=== PATIENT | female | born 2000 | race Two or more races ===

== ENCOUNTER 2023-08-12 11:41 | Emergency (ER) | payer BC, MEDICAID ==
[~2023-08-12] VITALS: Ht 160 cm; Wt 74.8 kg
[2023-08-12] MEDS ORDERED: ALBU18HF2 INH (13:08)
[2023-08-12 13:31] VITALS: BP 140/83; TEMP 98.3; O2SAT 98
== END 2023-08-12 13:31 | disposition home or self-care (01) ==
LOC: ER 11:51
DX: R05.9 Cough, unspecified (principal)
CPT/HCPCS: 71045-TC

== ENCOUNTER 2023-08-24 20:28 | Emergency (ER) | payer BC ==
[~2023-08-24] VITALS: Ht 160 cm; Wt 72.6 kg
[~2023-08-24 20:28] MED LIST: ALBU18HF2 INH
[2023-08-24] MEDS ORDERED: GUAI-671 PO (22:01)
[2023-08-24 22:10] VITALS: BP 104/79; TEMP 98.2; O2SAT 99
== END 2023-08-24 22:10 | disposition home or self-care (01) ==
LOC: ER 20:29
DX: R09.1 Pleurisy (principal)
CPT/HCPCS: 71045-TC

== ENCOUNTER 2025-02-20 09:37 | Emergency (ER) | payer BC ==
[~2025-02-20] VITALS: Ht 160 cm; Wt 81.6 kg
[~2025-02-20 09:37] MED LIST changes: +GUAI-671 PO
[2025-02-20] MEDS: PSEUDOEPHEDRINE HCL 30 MG TABLET PO ONE (10:30)
[2025-02-20] MEDS ORDERED: PSEUDOEPHEDRINE HCL 30 MG TABLET ONE (10:44)
[2025-02-20] MEDS ORDERED: BENZONATATE 100 MG CAPSULE PO ONE (10:44)
[2025-02-20] MEDS ORDERED: BENZ-13 PO (10:48)
[2025-02-20] MEDS ORDERED: ALBU18HF2 INH (10:48)
[2025-02-20] MEDS: BENZONATATE 100 MG CAPSULE PO PRN (10:51)
[2025-02-20 11:02] VITALS: BP 119/84; TEMP 98.6; O2SAT 99
== END 2025-02-20 11:03 | disposition home or self-care (01) ==
LOC: ER 09:55
DX: R05.9 Cough, unspecified (principal); J34.89 Other specified disorders of nose and nasal sinuses; R09.81 Nasal congestion
CPT/HCPCS: 71045-TC

== ENCOUNTER 2025-02-27 19:49 | Emergency (ER) | payer BC ==
[~2025-02-27] VITALS: Ht 160 cm; Wt 78.9 kg
[~2025-02-27 19:49] MED LIST changes: +BENZ-13 PO
[2025-02-27 20:40] LABS: BILIRUBIN,URINE MODERATE (NEGATIVE); BLOOD, URINE Large Ery/uL (NEGATIVE); KETONES,URINE 15 mg/dL (NEGATIVE); LEUKOCYTE ESTERASE ,URINE Large (NEGATIVE); PH,URINE 5.5 (5.0-8.0); PROTEIN,URINE >=300 mg/dl (NEGATIVE); UGLUCOSE Negative (NEGATIVE)
[2025-02-27 20:41] LABS: APPEARANCE,URINE HAZY (CLEAR); COLOR,URINE RED (YELLOW); NITRITE, URINE NEGATIVE (NEGATIVE)
[2025-02-27 20:42] LABS: ADD URINE CULTURE YES; BACTERIA,URINE 1+ /HPF (None Seen); RBC,URINE 51-80 /HPF (0-2); WBC,URINE 21-50 /HPF (0-3)
[2025-02-27 20:43] LABS: SQUAMOUS EPITHELIAL CELL,UR Moderate /HPF (None Seen); URINE AMORPHOUS URATE Moderate /HPF (None Seen)
[2025-02-27 21:16] LABS: BASOPHILS % (AUTO) 0.7 % (0.0-2.0); EOSINOPHILS # (AUTO) 0.1 K/uL (0.0-0.7); EOSINOPHILS % (AUTO) 1.7 % (0.0-6.0); HEMATOCRIT 40 % (33-45); HEMOGLOBIN 13.7 g/dL (11.5-14.8); LYMPHOCYTES % (AUTO) 29.7 % (20.0-44.0); MEAN CORPUSCULAR HEMOGLOBIN 30 PG (26.0-33.0); MEAN CORPUSCULAR HGB CONC 34 g/dl (31.0-36.0); MEAN CORPUSCULAR VOLUME 86 fL (82-100); MONOCYTES # (AUTO) 0.6 K/uL (0.1-1.30); MONOCYTES % (AUTO) 9.5 % (2.0-12.0); NEUTROPHILS # (AUTO) 3.9 K/uL (1.8-8.9); NEUTROPHILS % (AUTO) 58.4 % (43.0-81.0); PLATELET COUNT (AUTO) 257 K/uL (150-450); RED BLOOD CELL COUNT(AUTO) 4.65 MIL/uL (4.0-5.2); RED CELL DISTRIBUTION WIDTH 13.2 % (11.5-15.0); WHITE BLOOD COUNT (AUTO) 6.8 K/uL (4.3-11.0)
[2025-02-27] MEDS ORDERED: ACETAMINOPHEN ES 500 MG TABLET ONE (21:17)
[2025-02-27] MEDS: ACETAMINOPHEN ES 500 MG TABLET PO ONE (21:24)
[2025-02-27 21:29] LABS: CALCIUM, SERUM 8.9 mg/dL (8.5-10.1); CREATININE 0.6 mg/dL (0.6-1.3); POTASSIUM 3.7 mmol/L (3.5-5.1)
[2025-02-27 21:43] LABS: ALBUMIN 3.6 g/dL (3.4-5.0); BILIRUBIN,DIRECT 0.2 mg/dL (0.0-0.2); BILIRUBIN,TOTAL 0.7 mg/dL (0.2-1.0); TOTAL PROTEIN, SERUM 7.6 g/dL (6.4-8.2)
[2025-02-27] MEDS ORDERED: CEPH500C2 PO (22:03)
[2025-02-27 22:25] VITALS: BP 126/78; TEMP 98.9; O2SAT 99
== END 2025-02-27 22:29 | disposition home or self-care (01) ==
LOC: ER 19:54
DX: O20.8 Other hemorrhage in early pregnancy (principal); N39.0 Urinary tract infection, site not specified; R10.2 Pelvic and perineal pain; Z79.899 Other long term (current) drug therapy; Z3A.00 Weeks of gestation of pregnancy not specified
CPT/HCPCS: 36415; 76805-TC; 80048-TC; 80076-TC; 81001; 84702-TC; 85025-TC; 87086-TC

== ENCOUNTER 2025-03-02 13:49 | Emergency (ER) | payer BC ==
[~2025-03-02] VITALS: Ht 160 cm; Wt 77.6 kg
[~2025-03-02 13:49] MED LIST changes: +CEPH500C2 PO
[2025-03-02 14:03] VITALS: BP 113/59; TEMP 98.9; O2SAT 97
[2025-03-02 14:53] LABS: BASOPHILS % (AUTO) 0.6 % (0.0-2.0); EOSINOPHILS # (AUTO) 0.1 K/uL (0.0-0.7); EOSINOPHILS % (AUTO) 1.3 % (0.0-6.0); HEMATOCRIT 39 % (33-45); HEMOGLOBIN 13.1 g/dL (11.5-14.8); LYMPHOCYTES # (AUTO) 2.1 K/uL (0.8-4.8); LYMPHOCYTES % (AUTO) 26.2 % (20.0-44.0); MEAN CORPUSCULAR HEMOGLOBIN 30 PG (26.0-33.0); MEAN CORPUSCULAR HGB CONC 34 g/dl (31.0-36.0); MEAN CORPUSCULAR VOLUME 87 fL (82-100); MONOCYTES # (AUTO) 0.7 K/uL (0.1-1.30); MONOCYTES % (AUTO) 8.7 % (2.0-12.0); NEUTROPHILS % (AUTO) 63.2 % (43.0-81.0); PLATELET COUNT (AUTO) 255 K/uL (150-450); RED BLOOD CELL COUNT(AUTO) 4.42 MIL/uL (4.0-5.2); RED CELL DISTRIBUTION WIDTH 13.4 % (11.5-15.0)
== END 2025-03-02 15:46 | disposition home or self-care (01) ==
LOC: ER 13:53
DX: O03.9 Complete or unspecified spontaneous abortion without complication (principal); R10.2 Pelvic and perineal pain; Z87.440 Personal history of urinary (tract) infections
CPT/HCPCS: 36415; 76856-TC; 84702-TC; 85025-TC

== ENCOUNTER → 2025-08-11 | Emergency (ER) | payer BC ==
[~2025-08-11] VITALS: Ht 165.1 cm; Wt 74.8 kg
[2025-08-11 05:45] VITALS: BP 105/78; TEMP 98.8
[2025-08-11 07:44] VITALS: O2SAT 98
== END | disposition home or self-care (01) ==
LOC: ER 04:57
DX: R05.9 Cough, unspecified (principal); R06.02 Shortness of breath; R09.81 Nasal congestion; R07.89 Other chest pain